=== PATIENT | female | born 1935 | race Caucasian/White ===

== ENCOUNTER 2017-08-25 13:45 | Emergency (ER) | payer MEDICARE, OTHER ==
--- NOTE | 2017-08-25 14:32 | ED Physician Documentation ---
PD HPI ANIMAL BITE - Stated complaint Stated Complaint: R HAND DOG BITE - Chief complaint Chief Complaint: Wound - History obtained from History obtained from: Patient - History of Present Illness Location of injury(ies): Right hand Details of the event: Dog, Well appearing Timing - onset: Today Timing - details: Abrupt onset, Still present Worsened by: Moving, Palpating Associated symptoms: Swelling, Discolored (bruising color dorsum right hand with good movement of fingers/wrist). No: Weakness, Numbness Contributing factors: No: Immunocompromised Review of Systems Skin: reports: Laceration (s) Neurologic: denies: Focal weakness, Numbness PD PAST MEDICAL HISTORY - Past Medical History Past Medical History: Yes Cardiovascular: Coronary artery disease - Past Surgical History Past Surgical History: Yes Cardiovascular: Coronary stent - Present Medications Home Medications: Ambulatory Orders Medication Instructions Recorded Confirmed Amox/Clav 875/125 [Augmentin] 1 each PO BID #10 tablet 08/25/17 Aspirin [Adult Aspirin] 81 mg 08/25/17 Metoprolol Succinate 25 mg 08/25/17 Multivitamin/Iron/Folic Acid 1 cap 08/25/17 [Centrum Women Tablet] [place]-3/Dha/Epa/Fish Oil [Fish Oil 1 cap 08/25/17 1,000 mg Softgel] Ticagrelor [Brilinta] 90 mg 08/25/17 Valsartan 80 mg 08/25/17 Vitamin E 1 cap 08/25/17 - Allergies Allergies/Adverse Reactions: Allergies Allergy/AdvReac Type Severity Reaction Status Date / Time No Known Drug Allergies Allergy Verified 08/25/17 13:56 - Social History Does the pt smoke?: No Smoking Status: Never smoker Does the pt drink ETOH?: No Does the pt have substance abuse?: No - Immunizations Immunizations are current?: No Immunizations: TDAP >10years/unknown, Other immun current - POLST Patient has POLST: No PD ED PE NORMAL - Vitals Vital signs reviewed: Yes - General General: Alert and oriented X 3, No acute distress, Well developed/nourished - Neck Neck: Supple, no meningeal sign, No adenopathy - Back Back: No CVA TTP - Derm Derm: Normal color, Warm and dry - Extremities Extremities: Other (dorsum of hand with 2 small puncture wounds without FB nor bleeding. The area has bruising and an area of firmness underneath punctures. No bony tenderness. ) - Neuro Neuro: Alert and oriented X 3, No motor deficit, No sensory deficit Results - Vitals Vitals: Oxygen O2 Source Room air PD MEDICAL DECISION MAKING - ED course Complexity details: considered differential (minimal point breaks in the skin. Bruising subcut. Good hand movement, so does not seem any deep structures are involved.), d/w patient - Sepsis Event Vital Signs: Oxygen O2 Source Room air Departure - Departure Disposition: 01 Home, Self Care Clinical Impression: Dog bite, hand Qualifiers: Encounter type: initial encounter Laterality: right Qualified Code(s): S61.451A - Open bite of right hand, initial encounter Condition: Stable Record reviewed to determine appropriate education?: Yes Instructions: Bites Scratches Animal Prescriptions: Amox/Clav 875/125 [Augmentin] 1 each PO BID #10 tablet Comments: Elevate and rest your hand often for the swelling. He could use a wrap on there to help reduce swelling as well. The bite likely hit 1 of the small veins in the hand which is why they are so much bleeding and swelling under the skin. This should absorb on its own over a week or so. Use Tylenol ibuprofen if needed for pains. As we discussed, bite wounds are little more prone to infection and regular wounds and so start the Augmentin antibiotic twice daily at their earliest signs of infection (redness, purulence or red streaks). Discharge Date/Time: 08/25/17 15:32
[2017-08-25] MEDS ORDERED: TETANUS/DIPHTHERIA/PERTUSSIS 0.5 ML SYRINGE IM ONE (14:43)
[2017-08-25 15:34] VITALS: BP 148/82
== END 2017-08-25 15:32 | disposition home or self-care (01) ==
LOC: ED 13:45
DX: S61.451A Open bite of right hand, initial encounter (principal); W54.0XXA Bitten by dog, initial encounter; Y93.K9 Activity, other involving animal care
CPT/HCPCS: 90471; 99283

== ENCOUNTER 2021-02-01 10:33 | Outpatient (CLI) | payer MEDICARE, OTHER ==
--- NOTE | 2021-02-01 17:19 | DEXA Report ---
PROCEDURE: Dexa Spine and/or Hip INDICATIONS: POST MENOPAUSAL TECHNIQUE: Dual energy x-ray absorptiometry (DXA) was performed on a [employer] System. Regions measur ed are the AP Spine, femoral neck, and if needed forearm. COMPARISON: None. FINDINGS: Lumbar Spine: Bone Mineral Density 1.75 g/cm/cm,T score 5.1, normal Left Hip: Bone Mineral Density 1.091 g/cm/cm,T score 0.7, normal Left Femoral Neck: Bone Mineral Density 1.065 g/cm/cm, T score 0.2, normal (T score greater or equal to -1.0: NORMAL) (T score from -1.1 to -2.4: OSTEOPENIA) (T score less than or equal to -2.5 to: OSTEOPOROSIS) Impression: Normal bone mineral density. Patients with diagnosis of osteoporosis or osteopenia should have regular bone mineral density assess ment. For those eligible for Medicare, routine testing is allowed once every 2 years. Testing frequ ency can be increased for patients who have rapidly progressing disease or for those who are receivin g medical therapy to restore bone mass. Reviewed by: Domi Bowie MD, PhD on 02/01/2021 5:17 PM PST Approved by: Dmoi Bowie MD, PhD on 02/01/2021 5:17 PM PST Station ID: [id number]
== END 2021-02-01 10:34 | disposition home or self-care (01) ==
LOC: DI 10:33
PROVIDERS: ATTEND Physician Assistant
DX: Z13.820 Encounter for screening for osteoporosis (principal); Z78.0 Asymptomatic menopausal state